=== PATIENT | male | born 1995 | race African-American/Black ===

== ENCOUNTER 2019-04-08 09:26 | Emergency (ER) | payer OTHER ==
[2019-04-08] MEDS ORDERED: DIPH/PERTUSS(ACELL)/TETANUS VAC/PF 0.5 ML SYR (>=10YO) IM ONE (11:39)
--- NOTE | 2019-04-08 12:49 | RADIOLOGY REPORT (SQ) ---
EXAM DESCRIPTION: KNEE LEFT 2 VIEWS COMPLETED DATE/TIME: 04/08/2019 12:06 pm REASON FOR STUDY: abrasion medial LT knee, limited ROM COMPARISON: None. NUMBER OF VIEWS: Two views. TECHNIQUE: AP and lateral radiographic images acquired of the left knee. LIMITATIONS: None. FINDINGS: MINERALIZATION: Normal. BONES: No acute fracture or dislocation. No worrisome bone lesions. JOINT: No effusion. SOFT TISSUES: No soft tissue swelling. No radio-opaque foreign body. OTHER: No other significant finding. IMPRESSION: NEGATIVE STUDY OF THE LEFT KNEE. NO RADIOGRAPHIC EVIDENCE OF ACUTE INJURY. TECHNICAL DOCUMENTATION: JOB ID: [id number] [employer]- All Rights Reserved Reading location - IP/workstation name: [email or web address]
--- NOTE | 2019-04-08 13:02 | ER Document Report ---
HPI - HPI Time Seen by Provider: 04/08/19 11:22 Pain Level: 4 Notes: Patient is an otherwise healthy 23-year-old male presented to the emergency department with wound to his left calf. Patient reports he was cutting with a tile grinder on 04/05 when the tile grinder struck his leg. He reports that he did not want to come to the emergency department so he placed a dressing to the area. Patient reports since that time the pain has increased and the dressing is stuck. He reports he is soaked it multiple times in a bathtub in attempts to remove it but but has been unable to. Patient denies any fever or chills. Past Medical History - General Information source: Patient - Social History Smoking Status: Never Smoker Chew tobacco use (# tins/day): No Frequency of alcohol use: None Drug Abuse: None Family History: Reviewed & Not Pertinent Patient has suicidal ideation: No Patient has homicidal ideation: No - Medical History Medical History: Negative Renal/ Medical History: Denies: Hx Peritoneal Dialysis Surgical Hx: Negative - Immunizations Immunizations up to date: No Vertical Provider Document - CONSTITUTIONAL Notes: PHYSICAL EXAMINATION: GENERAL: Well-appearing, well-nourished and in no acute distress. HEAD: Atraumatic, normocephalic. EYES: Pupils equal round extraocular movements intact, conjunctiva are normal. ENT: Nares patent NECK: Normal range of motion LUNGS: No respiratory distress Musculoskeletal: Normal range of motion NEUROLOGICAL: Normal speech, normal gait. PSYCH: Normal mood, normal affect. SKIN: Abrasion noted to inner aspect of left lower extremity over the calf area, no active bleeding noted, small amounts of whitish-yellow drainage, mild surrounding erythema. No foul odor. - INFECTION CONTROL TRAVEL OUTSIDE OF THE [place] IN LAST 30 DAYS: No Course - Re-evaluation Re-evalutation: Dressing was removed without difficulty using saline. There is very mild surrou nding erythema but the wound actually appears to be healing well. Considering patient had a wet dressing to the area for the last 2 to 3 days without removing it I do want to start patient on antibiotics at this time to prevent infection as I do think that this wound is at a higher risk than a normal abrasion. Patient verbalizes understanding and agreement with this plan, he understands ED return precautions. - Vital Signs Vital signs: Temp Pulse Resp BP Pulse Ox 98.4 F 85 20 119/77 98 04/08/19 09:42 04/08/19 09:42 04/08/19 09:42 04/08/19 09:42 04/08/19 09:42 Discharge - Discharge Clinical Impression: Mild cellulitis Abrasion of left knee Qualifiers: Encounter type: initial encounter Qualified Code(s): S80.212A - Abrasion, left knee, initial encounter Condition: Stable Disposition: HOME, SELF-CARE Additional Instructions: The x-ray of your knee was negative for any fracture of the knee or deep wound infection. Please take antibiotics as prescribed. Please change the dressing twice daily. I would like you to apply a thin layer of bacitracin or triple antibiotic ointment to the area twice daily, cover with a nonstick pad and then cover with gauze or some type of a wrap. Please keep the wound clean and dry. Wash the area twice daily with water and the surgical scrub that we are sending you home with. Please return to the emergency department for any new or worsening symptoms to include increased drainage from the area, worsening pain to the area, red streaking from the area or development of fever. Prescriptions: Cephalexin [Cephalexin 500 MG Tablet] 1 tab PO BID #14 tablet Forms: Return to Work
[2019-04-08 13:25] VITALS: BP 120/75
== END 2019-04-08 13:30 | disposition home or self-care (01) ==
LOC: ER 09:26
DX: S80.212A Abrasion, left knee, initial encounter (principal); W22.8XXA Striking against or struck by other objects, initial encounter; Y93.89 Activity, other specified; Y99.0 Civilian activity done for income or pay; L03.90 Cellulitis, unspecified
CPT/HCPCS: 90715; 99283